=== PATIENT | female | born 1965 | race Caucasian/White ===

== ENCOUNTER 2020-08-26 12:10 | Emergency (ER) | payer OTHER, SELFPAY ==
--- NOTE | ~2020-08-26 | XR_ITS ---
XR knee RT 3V DATE: 08/26/2020 12:44 INDICATION: Recent fall on the patellas. Bilateral knee pain. TECHNIQUE: [place], AP, lateral views COMPARISON: None FINDINGS: There is osteoarthritis including particular spurring at the patellofemoral joint. Medial a nd lateral compartment joint spaces are well preserved. Mild suprapatellar knee joint effusion is suggested. No fracture or dislocation, periosteal reaction or bone destruction is detected. No radiopaque intra- articular loose body or chondrocalcinosis. IMPRESSION: Patellofemoral compartment osteoarthritis Possible mild knee joint effusion Reviewed, dictated and finalized at location A.
--- NOTE | ~2020-08-26 | XR_ITS ---
XR knee LT 3V DATE: 08/26/2020 12:44 INDICATION: Fall on both patellas. Bilateral knee pain. TECHNIQUE: [place] and AP and lateral views COMPARISON: None FINDINGS: There is patellofemoral joint space narrowing and periarticular spurring at the patellofemo ral and lateral and lateral compartments consistent with tricompartment osteoarthritis. No fracture or dislocation or knee joint effusion is evident. No periosteal reaction or bone destruct ion. IMPRESSION: Tricompartment osteoarthritic arthritis, most prominent at the patellofemoral compartment No fracture or dislocation or knee joint effusion is detected Reviewed, dictated and finalized at location A. IMPRESSION: Tricompartment osteoarthritic arthritis, most prominent at the simmons llofemoral compartment No fracture or dislocation or knee joint effusion is detected
[2020-08-26 12:20] VITALS: BP 141/85; PULSE 100; RESP 18; TEMP 36.2; O2SAT 100
--- NOTE | 2020-08-26 14:16 | ED.GENADULT ---
HPI - General Adult General Chief complaint: Extremity Injury, Lower Stated complaint: Bilateral knee pain Time Seen by Provider: 08/26/20 13:22 Source: patient and family Mode of arrival: ambulatory Limitations: no limitations History of Present Illness HPI narrative: Patient is a 55-year-old female who presents to emergency department for evaluation of bilateral knee pain right worse than left had injured her knee by feeling a pop several times over the course of the last month last of which was a couple of days ago when her knees gave out landing on the knees and has since had aching pain to the bilateral knees also notes swelling of the right knee. Patient has not been seen for this complaint attempted to see an orthopedist but was unable to do so. Patient denies other complaints presents in no distress does have crutches Review of Systems Review of Systems: All systems reviewed & are unremarkable except as noted in HPI and below PMFSH Past Medical History Medical History (Updated 08/26/20 @ 14:19 by Zeferino Acevedo PA-C) Anxiety Depression Social History Social History (Updated 08/26/20 @ 14:17 by Zeferino Acevedo PA-C) Smoking status: Former smoker Gender identity (if verbalized by the patient): Female Exam Narrative: Exam Narrative: GENERAL: Well-appearing, obese, and in no acute distress. HEAD: Normocephalic, atraumatic. EYES: PERRLA and EOMI. ENT: Nares clear, no rhinorrhea or epistaxis. Mucous membranes moist. EXTREMITIES: Tenderness of the anterior aspect of the bilateral knees possible effusion on the right no erythema or other abnormalities noted SKIN: Warm, dry, no rash. NEURO: No focal deficits. Alert and oriented x3. Cranial nerves II through XII grossly intact PSYCH: Normal mood and affect. Course Course Emergency Course: Patient will be discharged home to follow-up with orthopedist was given referral felt appropriate for outpatient reevaluation Vital Signs Vital signs: Vital Signs Temperature 97.2 F L 08/26/20 12:20 Pulse Rate 100 08/26/20 12:20 Respiratory Rate 18 08/26/20 12:20 Blood Pressure 141/85 H 08/26/20 12:20 Pulse Oximetry 100 08/26/20 12:20 Temperature 97.2 F L 08/26/20 12:20 Pulse Rate 100 08/26/20 12:20 Respiratory Rate 18 08/26/20 12:20 Blood Pressure 141/85 H 08/26/20 12:20 Pulse Oximetry 100 08/26/20 12:20 Medical Decision Making MDM Narrative Medical decision making narrative: Patients injury or pain is consistent with musculoskeletal etiology. No signs of neurological or vascular compromise on exam. Compartments and tisues are soft without signs of compartment syndrome. Pain is felt appropriate for further evaluation on an outpatient basis. Vital Signs Vital Signs: Vital Signs Temperature 97.2 F L 08/26/20 12:20 Pulse Rate 100 08/26/20 12:20 Respiratory Rate 18 08/26/20 12:20 Blood Pressure 141/85 H 08/26/20 12:20 Pulse Oximetry 100 08/26/20 12:20 Temperature 97.2 F L 08/26/20 12:20 Pulse Rate 100 08/26/20 12:20 Respiratory Rate 18 08/26/20 12:20 Blood Pressure 141/85 H 08/26/20 12:20 Pulse Oximetry 100 08/26/20 12:20 Imaging Data Radiologist's impression: ITS Impressions Knee X-Ray 08/26/20 12:50 IMPRESSION: Tricompartment osteoarthritic arthritis, most prominent at the patellofemoral compartment No fracture or dislocation or knee joint effusion is detected Discharge Plan Discharge Clinical Impression: Acute pain of right knee, Acute pain of left knee Patient Disposition: Home, Self-Care Condition: Stable Instructions: Antibiotic Form, Arthralgia (ED) Additional Instructions: Wear brace and use crutches with limited to no weight on the affected leg until able to bear weight without pain. Ice and elevate extremity. Pain medication as needed and directed. Follow-up with orthopedic surgery by phone tomorrow to set up for reevaluation. Follow-up with primary
== END 2020-08-26 14:33 | disposition home or self-care (01) ==
PROVIDERS: Emergency Provider Family Medicine; PCP Physician Assistant
DX: M25.562 Pain in left knee (principal); M25.561 Pain in right knee; Z87.891 Personal history of nicotine dependence; M17.0 Bilateral primary osteoarthritis of knee
CPT/HCPCS: 73562; 99283